=== PATIENT | female | born 1975 | race Caucasian/White ===

== ENCOUNTER 2016-08-30 14:22 | Emergency (ER) | payer OTHER ==
[2016-08-30] MEDS ORDERED: PRINIVIL10 M1 PO (15:24)
[2016-08-30] MEDS ORDERED: CALAN SR240 M1 PO (15:24)
[2016-08-30] MEDS ORDERED: OTEZLA PO (15:25)
[2016-08-30] MEDS ORDERED: LORTAB 10-3251 EAC1 PO (15:26)
[2016-08-30] MEDS ORDERED: NORCO 5-325 TA1 EACH PO (15:45)
== END 2016-08-30 16:07 ==
LOC: EDMED 14:22
DX: G89.29 Other chronic pain (principal); M54.6 Pain in thoracic spine; I10 Essential (primary) hypertension
CPT/HCPCS: J1885